=== PATIENT | female | born 1955 | race African-American/Black ===

== ENCOUNTER 2016-10-21 19:39 | Emergency (ER) | payer MEDICARE, MEDICAID ==
[~2016-10-21] VITALS: Ht 170.2 cm; Wt 120.0 kg
[~2016-10-21 19:39] MED LIST: AMIT-188 GT; AMLO10TA4 PO; ASPI-1079 PO; CLOP75TA2 PO; LOSA100T11 PO; METO50TA5 PO
[2016-10-21] MEDS ORDERED: KETOROLAC 60MG/2ML VIAL IM ONE (23:45)
[2016-10-22 00:32] VITALS: BP 160/74
== END 2016-10-22 01:22 | disposition home or self-care (01) ==
LOC: ER 19:40
DX: S93.402A Sprain of unspecified ligament of left ankle, initial encounter (principal); E78.00 Pure hypercholesterolemia, unspecified; E11.9 Type 2 diabetes mellitus without complications; I10 Essential (primary) hypertension; Z88.0 Allergy status to penicillin; Z79.82 Long term (current) use of aspirin; W01.0XXA Fall on same level from slipping, tripping and stumbling without subsequent striking against object, initial encounter; Y92.512 Supermarket, store or market as the place of occurrence of the external cause
CPT/HCPCS: 73610; 73630; 96372; 99284; J1885

== ENCOUNTER 2017-05-15 20:30 | Emergency (ER) | payer MEDICARE, MEDICAID ==
[~2017-05-15] VITALS: Ht 170.2 cm; Wt 119.0 kg
[~2017-05-15 20:30] MED LIST changes: +CLOP75TA16 PO; -CLOP75TA2 PO; -LOSA100T11 PO; +LOSA100T3 PO
[2017-05-15 23:15] VITALS: BP 140/89
== END 2017-05-16 00:02 | disposition home or self-care (01) ==
LOC: ER 23:59
DX: S82.832A Other fracture of upper and lower end of left fibula, initial encounter for closed fracture (principal); S93.402A Sprain of unspecified ligament of left ankle, initial encounter; F17.200 Nicotine dependence, unspecified, uncomplicated; F12.10 Cannabis abuse, uncomplicated; Z88.0 Allergy status to penicillin; X58.XXXA Exposure to other specified factors, initial encounter; Y93.01 Activity, walking, marching and hiking; Y92.89 Other specified places as the place of occurrence of the external cause; Y99.8 Other external cause status
CPT/HCPCS: 29515; 73610; 99284

== ENCOUNTER 2017-05-16 20:43 | Emergency (ER) | payer MEDICARE, MEDICAID ==
[~2017-05-16] VITALS: Ht 165.1 cm; Wt 120.0 kg
[2017-05-16 21:19] VITALS: BP 178/108
== END 2017-05-17 01:10 | disposition home or self-care (01) ==
LOC: ER 20:52
DX: S93.402A Sprain of unspecified ligament of left ankle, initial encounter (principal); X58.XXXA Exposure to other specified factors, initial encounter; Y93.89 Activity, other specified; Y92.89 Other specified places as the place of occurrence of the external cause; Y99.8 Other external cause status
CPT/HCPCS: 29515; 99283

== ENCOUNTER 2017-05-27 00:52 | Emergency (ER) | payer MEDICARE, MEDICAID ==
[~2017-05-27] VITALS: Ht 170.2 cm; Wt 118.0 kg
[2017-05-27] MEDS ORDERED: CLONIDINE 0.2MG TABLET PO ONE (02:30)
[2017-05-27 02:36] LABS: EOSINOPHILS % 2.6 % (0.0-5.0); HEMATOCRIT. 44.5 % (36.0-48.0); MEAN CORPUSCULAR HEMOGLOBIN 31.2 pg (28.0-32.0); MEAN CORPUSCULAR VOLUME 92.7 fL (81.0-99.0); MEAN PLATELET VOLUME 8.5 fl (7.4-10.4); MONOCYTES % 10.4 % (2.0-8.0); PLATELET 209 x1000/uL (130-400); RED CELL DISTRIBUTION WIDTH 15.6 % (11.6-14.6)
[2017-05-27 02:41] LABS: CHLORIDE 107 mEq/L (98-107)
[2017-05-27 02:46] LABS: CARBON DIOXIDE 28 mEq/L (21-32)
[2017-05-27 03:24] VITALS: BP 175/92
== END 2017-05-27 04:05 | disposition home or self-care (01) ==
LOC: ER 00:52
DX: I10 Essential (primary) hypertension (principal); R51 Headache; F17.210 Nicotine dependence, cigarettes, uncomplicated; Z88.0 Allergy status to penicillin; Z79.82 Long term (current) use of aspirin; Z71.6 Tobacco abuse counseling
CPT/HCPCS: 36415; 80048; 85025; 93005; 99285

== ENCOUNTER 2017-06-23 19:38 | Emergency (ER) | payer MEDICARE, MEDICAID ==
[~2017-06-23] VITALS: Ht 170.2 cm; Wt 118.0 kg
[~2017-06-23 19:38] MED LIST changes: +METO-539 PO; -METO50TA5 PO
[2017-06-23] MEDS ORDERED: IBUPROFEN 400MG TABLET PO ONE (22:00)
[2017-06-23 23:55] VITALS: BP 158/76
== END 2017-06-24 00:46 | disposition home or self-care (01) ==
LOC: ER 19:38
DX: M85.871 Other specified disorders of bone density and structure, right ankle and foot (principal); M85.872 Other specified disorders of bone density and structure, left ankle and foot; M77.32 Calcaneal spur, left foot; F41.9 Anxiety disorder, unspecified; E11.9 Type 2 diabetes mellitus without complications; I10 Essential (primary) hypertension; E66.9 Obesity, unspecified; F17.210 Nicotine dependence, cigarettes, uncomplicated; Z68.41 Body mass index [BMI] 40.0-44.9, adult; Z88.0 Allergy status to penicillin; Z79.82 Long term (current) use of aspirin
CPT/HCPCS: 73610; 73630; 99284

== ENCOUNTER 2017-10-04 23:55 | Emergency (ER) | payer MEDICARE, MEDICAID ==
[~2017-10-04] VITALS: Ht 170.2 cm; Wt 118.0 kg
[~2017-10-04 23:55] MED LIST changes: +ALBI30PE SUBCUT; +ALBU6.7H INH; -AMIT-188 GT; +AMIT-188 PO; +CLON0.1T PO; +GUAI-858 PO; +HYDR-4005 PO; +NICO-645 TD; +NITR0.4T49 SL; +TRAM50TA3 PO
[2017-10-05 03:08] VITALS: BP 159/77
== END 2017-10-05 03:09 | disposition home or self-care (01) ==
LOC: ER 23:55
DX: S40.012A Contusion of left shoulder, initial encounter (principal); S00.11XA Contusion of right eyelid and periocular area, initial encounter; I10 Essential (primary) hypertension; F17.200 Nicotine dependence, unspecified, uncomplicated; W01.0XXA Fall on same level from slipping, tripping and stumbling without subsequent striking against object, initial encounter; Y93.89 Activity, other specified; Y99.8 Other external cause status; Y92.89 Other specified places as the place of occurrence of the external cause; Z79.82 Long term (current) use of aspirin; Z88.0 Allergy status to penicillin
CPT/HCPCS: 99281

== ENCOUNTER 2017-10-28 14:10 | Emergency (ER) | payer MEDICARE, MEDICAID ==
[~2017-10-28] VITALS: Ht 165.1 cm; Wt 110.0 kg
[2017-10-28 16:39] LABS: HEMATOCRIT. 48.9 % (36.0-48.0); HEMOGLOBIN. 16.7 g/dL (12.0-16.0); MEAN CORPUSCULAR HEMOGLOBIN 31.3 pg (28.0-32.0); MEAN CORPUSCULAR VOLUME 91.7 fL (81.0-99.0); MEAN PLATELET VOLUME 8.6 fl (7.4-10.4); PLATELET 201 x1000/uL (130-400); RED BLOOD CELL COUNT 5.33 mill/uL (4.2-5.4); RED CELL DISTRIBUTION WIDTH 15.9 % (11.6-14.6)
[2017-10-28 16:44] LABS: CHLORIDE 105 mEq/L (98-107)
[2017-10-28 16:46] LABS: PARTIAL THROMBOPLASTIN TIME 22.9 sec (23.4-31.0); PROTHROMBIN TIME 10.6 sec (9.4-11.6)
[2017-10-28 17:45] LABS: PLATELET ESTIMATE NORMAL
[2017-10-28 21:43] VITALS: BP 156/72
== END 2017-10-28 21:45 | disposition home or self-care (01) ==
LOC: ER 16:56
DX: K02.9 Dental caries, unspecified (principal); I10 Essential (primary) hypertension; R94.31 Abnormal electrocardiogram [ECG] [EKG]; Z88.0 Allergy status to penicillin
CPT/HCPCS: 36415; 71045; 80053; 83690; 84484; 85025; 85610; 85730; 93005; 99285

== ENCOUNTER 2018-01-10 14:40 | Emergency (ER) | payer MEDICARE, MEDICAID ==
[~2018-01-10] VITALS: Ht 167.6 cm; Wt 120.0 kg
[2018-01-10] MEDS ORDERED: CYCLOBENZAPRINE 10MG TABLET PO ONE (15:30)
[2018-01-10] MEDS ORDERED: ACETAMINOPHEN 325MG TABLET PO ONE (15:30)
[2018-01-10 15:46] VITALS: BP 168/88
== END 2018-01-10 15:48 | disposition home or self-care (01) ==
LOC: ER 14:40
DX: M62.830 Muscle spasm of back (principal); I10 Essential (primary) hypertension; Z88.0 Allergy status to penicillin; Z79.01 Long term (current) use of anticoagulants
CPT/HCPCS: 99283

== ENCOUNTER 2018-01-31 16:27 | Emergency (ER) | payer MEDICARE, MEDICAID ==
[~2018-01-31] VITALS: Ht 170.2 cm; Wt 118.0 kg
[2018-01-31 17:04] VITALS: BP 190/90
== END 2018-01-31 19:30 | disposition left against medical advice (07) ==
LOC: ER 16:27
DX: H92.02 Otalgia, left ear (principal)
CPT/HCPCS: 99281

== ENCOUNTER 2018-02-02 16:36 | Emergency (ER) | payer MEDICARE, MEDICAID ==
[~2018-02-02] VITALS: Ht 162.6 cm; Wt 80.0 kg
[2018-02-02 16:56] VITALS: BP 162/72
== END 2018-02-02 17:30 | disposition home or self-care (01) ==
LOC: ER 16:36
DX: H92.02 Otalgia, left ear (principal); I10 Essential (primary) hypertension; F17.200 Nicotine dependence, unspecified, uncomplicated; Z88.0 Allergy status to penicillin; Z79.82 Long term (current) use of aspirin; Z79.899 Other long term (current) drug therapy
CPT/HCPCS: 99281

== ENCOUNTER 2018-07-24 20:19 | Emergency (ER) | payer MEDICARE, MEDICAID ==
[~2018-07-24] VITALS: Ht 170.2 cm; Wt 118.0 kg
[~2018-07-24 20:19] MED LIST changes: -ALBI30PE SUBCUT; +ALBI30PE3 SUBCUT
[2018-07-24 21:53] VITALS: BP 131/73
[2018-07-24] MEDS ORDERED: FLUORESCEIN SODIUM 1MG/STRIP BOTHEYE ONE (22:30)
[2018-07-24] MEDS ORDERED: POLYVINYL ALCOHOL OPHTH DROPS 15ML BOTHEYE SCH (22:30)
[2018-07-24] MEDS ORDERED: TETRACAINE 0.5% OPHTH DROPS 4ML BOTHEYE ONE (22:45)
== END 2018-07-24 23:46 | disposition home or self-care (01) ==
LOC: ER 20:19
DX: H10.9 Unspecified conjunctivitis (principal); I11.9 Hypertensive heart disease without heart failure; F17.200 Nicotine dependence, unspecified, uncomplicated; Z88.0 Allergy status to penicillin
CPT/HCPCS: 99283

== ENCOUNTER 2018-11-14 05:27 | Inpatient (IN) | payer MEDICARE, MEDICAID ==
[~2018-11-14] VITALS: Ht 170 cm; Wt 117.9 kg
[2018-11-14 06:37] LABS: BASOPHILS % 1.2 % (0.0-2.0); EOSINOPHILS % 0.4 % (0.0-5.0); HEMATOCRIT. 45.5 % (36.0-48.0); HEMOGLOBIN. 15.3 g/dL (12.0-16.0); LYMPHOCYTES % 19.4 % (20.0-50.0); MEAN CORPUSCULAR HEMOGLOBIN 30.9 pg (28.0-32.0); MEAN CORPUSCULAR VOLUME 91.8 fL (81.0-99.0); MEAN PLATELET VOLUME 7.8 fl (7.4-10.4); MONOCYTES % 9.7 % (2.0-8.0); NEUTROPHILS % 69.3 % (40.0-76.0); PLATELET 228 x1000/uL (130-400); RED BLOOD CELL COUNT 4.96 mill/uL (4.2-5.4); RED CELL DISTRIBUTION WIDTH 15.2 % (11.6-14.6)
[2018-11-14 06:42] LABS: CHLORIDE 109 mEq/L (98-107)
[2018-11-14 06:46] LABS: PARTIAL THROMBOPLASTIN TIME 30.7 sec (23.4-31.0); PROTHROMBIN TIME 10.1 sec (9.6-11.0)
[2018-11-14] MEDS ORDERED: ENALAPRIL 2.5MG/2ML VIAL 2ML IV ONE (07:00)
[2018-11-14] MEDS ORDERED: METHYLPREDNISOLONE SOD SUCC 125 MG/2 ML VIAL IV STA (07:10)
[2018-11-14] MEDS ORDERED: MAGNESIUM 2 G PREMIX 50 ML IV STA (07:10)
[2018-11-14] MEDS ORDERED: IPRATROPIUM BROMIDE (0.02%) 0.5MG/2.5ML NEB HHN STA (07:10)
[2018-11-14] MEDS ORDERED: ALBUTEROL (0.083%) 2.5MG/3ML NEB HHN STA (07:10)
[2018-11-14] MEDS ORDERED: ASPIRIN 81MG TABLET PO ONE (07:30)
[2018-11-14] MEDS ORDERED: ACETAMINOPHEN 325MG TABLET PO PRN (09:30)
[2018-11-14] MEDS ORDERED: ENOXAPARIN 40MG/0.4ML SYR SUBCUT SCH (09:30)
[2018-11-14] MEDS ORDERED: TRAMADOL 50MG TABLET PO PRN (09:30)
[2018-11-14] MEDS ORDERED: GUAIFENESIN 200MG/10ML SUGAR FREE UDC PO PRN (09:30)
[2018-11-14] MEDS ORDERED: LORAZEPAM 0.5MG TABLET PO PRN (09:30)
[2018-11-14] MEDS ORDERED: ONDANSETRON HCL 4MG/2ML INJ IV PRN (09:30)
[2018-11-14] MEDS ORDERED: MORPHINE SULFATE 4 MG/ML CPJ (NOT FOR IM USE) IV PRN (09:30)
[2018-11-14] MEDS ORDERED: DOCUSATE SODIUM 100MG CAPSULE PO PRN (09:30)
[2018-11-14] MEDS ORDERED: MAGNESIUM/ALUMINUM HYDROXIDE/SIMETHICONE 30ML UDC PO PRN (09:30)
[2018-11-14] MEDS ORDERED: ZOLPIDEM TARTRATE 5MG TABLET PO PRN (09:30)
[2018-11-14] MEDS ORDERED: NITROGLYCERIN 0.4MG TABLET SL SL PRN (09:30)
[2018-11-14] MEDS ORDERED: IPRATROPIUM/ALBUTEROL 0.5-3(2.5)MG/3ML NEB INH PRN (09:30)
[2018-11-14 10:00] VITALS: BP 156/52
[2018-11-14] MEDS: CLOPIDOGREL 75MG TABLET PO SCH (11:55)
[2018-11-14] MEDS: AMLODIPINE 10MG TABLET PO SCH (11:56)
[2018-11-14] MEDS: LOSARTAN POTASSIUM 100 MG TABLET PO SCH (11:56)
[2018-11-14] MEDS: FAMOTIDINE 20MG TABLET PO SCH ×2 (11:56→21:00)
[2018-11-14] MEDS: ASPIRIN 81MG EC TABLET PO SCH (11:56)
[2018-11-14] MEDS: ENOXAPARIN 30MG/0.3ML SYR SUBCUT SCH ×2 (11:57→21:00)
[2018-11-14] MEDS: GUAIFENESIN 600MG ER TABLET PO SCH ×2 (11:57→21:06)
[2018-11-14 12:00] VITALS: BP_SYST 140; BP_SYST 159; BP_DIAS 48; BP_DIAS 87
[2018-11-14] MEDS: METHYLPREDNISOLONE SOD SUCC 125 MG/2 ML VIAL IV SCH ×2 (14:11→21:07)
[2018-11-14] MEDS: LEVOFLOXACIN 500MG PREMIX 100 ML IV SCH (14:12)
[2018-11-14] MEDS: METOPROLOL TARTRATE 25MG TABLET PO SCH ×2 (14:15→21:06)
[2018-11-14 16:00] VITALS: BP 196/78
[2018-11-14 16:00] LABS: CREATINE KINASE MB FRACTION 4.9 ng/mL (0.5-3.6)
[2018-11-14 18:57] VITALS: BP 135/78
[2018-11-14] MEDS: CLONIDINE 0.1MG TABLET PO PRN (19:26)
[2018-11-14 19:29] VITALS: BP 233/91
[2018-11-14] MEDS ORDERED: AMIT75TA2 MT (19:52)
[2018-11-14 20:00] VITALS: BP 154/70
[2018-11-14] MEDS: IPRATROPIUM/ALBUTEROL 0.5-3(2.5)MG/3ML NEB HHN SCH ×2 (20:07→20:39)
[2018-11-14] MEDS: AMITRIPTYLINE 25MG TABLET PO SCH (21:05)
[2018-11-14] MEDS: ACETAMINOPHEN WITH CODEINE 300/30MG TABLET PO PRN (21:07)
[2018-11-14 23:41] LABS: CREATINE KINASE MB FRACTION 7.1 ng/mL (0.5-3.6)
[2018-11-15] VITALS: BP 145/72
[2018-11-15] MEDS: FAMOTIDINE 20MG TABLET PO SCH ×3 (00:48→21:00)
[2018-11-15 01:15] LABS: PHENCYCLIDINE URINE SCREEN NEGATIVE (NEGATIVE)
[2018-11-15 01:16] LABS: *AMPHETAMINES SCREEN URINE NEGATIVE (NEGATIVE); *BARBITURATES SCREEN URINE NEGATIVE (NEGATIVE); *BENZODIAZEPINES SCREEN URINE NEGATIVE (NEGATIVE); *COCAINE SCREEN URINE NEGATIVE (NEGATIVE); CANNABINOID URINE SCREEN NEGATIVE (NEGATIVE); METHADONE URINE SCREEN NEGATIVE (NEGATIVE); OPIATES URINE SCREEN PRESUMTIVE POSITIVE (NEGATIVE)
[2018-11-15] MEDS: IPRATROPIUM/ALBUTEROL 0.5-3(2.5)MG/3ML NEB HHN SCH ×5 (01:47→20:04)
[2018-11-15] MEDS: METHYLPREDNISOLONE SOD SUCC 125 MG/2 ML VIAL IV SCH ×3 (06:07→21:02)
[2018-11-15 08:00] VITALS: BP 180/71
[2018-11-15] MEDS: ENOXAPARIN 30MG/0.3ML SYR SUBCUT SCH ×3 (09:00→21:00)
[2018-11-15] MEDS: ASPIRIN 81MG EC TABLET PO SCH (09:06)
[2018-11-15] MEDS: CLOPIDOGREL 75MG TABLET PO SCH (09:06)
[2018-11-15] MEDS: LOSARTAN POTASSIUM 100 MG TABLET PO SCH (09:06)
[2018-11-15] MEDS: METOPROLOL TARTRATE 25MG TABLET PO SCH ×2 (09:07→21:00)
[2018-11-15] MEDS: GUAIFENESIN 600MG ER TABLET PO SCH ×2 (09:07→21:00)
[2018-11-15] MEDS: AMLODIPINE 10MG TABLET PO SCH (09:08)
[2018-11-15 12:00] VITALS: BP 156/58
[2018-11-15] MEDS: LEVOFLOXACIN 500MG PREMIX 100 ML IV SCH (12:03)
[2018-11-15 14:15] VITALS: BP 165/68
[2018-11-15 18:00] VITALS: BP 163/58
[2018-11-15] MEDS: CLONIDINE 0.1MG TABLET PO PRN (18:29)
[2018-11-15] MEDS ORDERED: DEXTROSE 50% WATER 50ML SYRINGE IV PRN (19:00)
[2018-11-15 20:00] VITALS: BP 173/69
[2018-11-15] MEDS: BLOOD SUGAR DIAGNOSTIC STRIP TEST SCH (20:26)
[2018-11-15] MEDS: NICOTINE 14MG PATCH TD SCH (21:00)
[2018-11-15] MEDS: AMITRIPTYLINE 25MG TABLET PO SCH (21:00)
[2018-11-15] MEDS ORDERED: INSULIN LISPRO 100 UNITS/ML SUBCUT SCH (21:00)
[2018-11-15] MEDS: ACETAMINOPHEN WITH CODEINE 300/30MG TABLET PO PRN (21:01)
[2018-11-15] MEDS: INSULIN LISPRO 100 UNITS/ML SUBCUT SCH (21:01)
[2018-11-16] VITALS: BP 125/62
[2018-11-16] MEDS: METHYLPREDNISOLONE SOD SUCC 125 MG/2 ML VIAL IV SCH ×3 (05:57→21:27)
[2018-11-16] MEDS: IPRATROPIUM/ALBUTEROL 0.5-3(2.5)MG/3ML NEB HHN SCH ×3 (08:08→21:31)
[2018-11-16] MEDS: BLOOD SUGAR DIAGNOSTIC STRIP TEST SCH ×4 (08:23→21:05)
[2018-11-16] MEDS: ENOXAPARIN 30MG/0.3ML SYR SUBCUT SCH ×2 (09:00→21:02)
[2018-11-16 12:00] VITALS: BP 155/66
[2018-11-16] MEDS: LEVOFLOXACIN 500MG PREMIX 100 ML IV SCH (12:23)
[2018-11-16] MEDS: GUAIFENESIN 600MG ER TABLET PO SCH ×2 (12:24→21:02)
[2018-11-16] MEDS: ASPIRIN 81MG EC TABLET PO SCH (12:24)
[2018-11-16] MEDS: CLOPIDOGREL 75MG TABLET PO SCH (12:24)
[2018-11-16] MEDS: AMLODIPINE 10MG TABLET PO SCH (12:24)
[2018-11-16] MEDS: METOPROLOL TARTRATE 25MG TABLET PO SCH ×2 (12:25→21:03)
[2018-11-16] MEDS: FAMOTIDINE 20MG TABLET PO SCH ×2 (12:25→21:03)
[2018-11-16] MEDS: LOSARTAN POTASSIUM 100 MG TABLET PO SCH (12:25)
[2018-11-16] MEDS: INSULIN LISPRO 100 UNITS/ML SUBCUT SCH ×4 (12:30→21:05)
[2018-11-16 16:00] VITALS: BP 124/74
[2018-11-16 20:00] VITALS: BP 116/35
[2018-11-16 21:00] VITALS: BP 116/55
[2018-11-16] MEDS: NICOTINE 14MG PATCH TD SCH (21:02)
[2018-11-16] MEDS: AMITRIPTYLINE 25MG TABLET PO SCH (21:03)
[2018-11-17] VITALS: BP 122/62
[2018-11-17] MEDS: IPRATROPIUM/ALBUTEROL 0.5-3(2.5)MG/3ML NEB HHN SCH ×2 (02:41→09:09)
[2018-11-17] MEDS: METHYLPREDNISOLONE SOD SUCC 125 MG/2 ML VIAL IV SCH (05:57)
[2018-11-17] MEDS: BLOOD SUGAR DIAGNOSTIC STRIP TEST SCH (05:57)
[2018-11-17] MEDS: ENOXAPARIN 30MG/0.3ML SYR SUBCUT SCH (09:00)
[2018-11-17 10:28] VITALS: BP 143/68
[2018-11-17] MEDS: CLOPIDOGREL 75MG TABLET PO SCH (10:32)
[2018-11-17] MEDS: GUAIFENESIN 600MG ER TABLET PO SCH (10:32)
[2018-11-17] MEDS: ASPIRIN 81MG EC TABLET PO SCH (10:32)
[2018-11-17] MEDS: AMLODIPINE 10MG TABLET PO SCH (10:32)
[2018-11-17] MEDS: FAMOTIDINE 20MG TABLET PO SCH (10:33)
[2018-11-17] MEDS: LOSARTAN POTASSIUM 100 MG TABLET PO SCH (10:33)
[2018-11-17] MEDS: METOPROLOL TARTRATE 25MG TABLET PO SCH (10:33)
[2018-11-17] MEDS: INSULIN LISPRO 100 UNITS/ML SUBCUT SCH (10:36)
[2018-11-17] MEDS ORDERED: LEVOFLOXACIN 500MG TABLET PO SCH (11:00)
[2018-11-17 11:38] VITALS: BP 143/68
== END 2018-11-17 12:17 | disposition home or self-care (01) | DRG 189 ==
LOC: ER 05:27 → 7WST 07:38 → ENRESERV 08:44
PROVIDERS: ADMIT Internal Medicine; ATTEND Internal Medicine
DX: J96.00 Acute respiratory failure, unspecified whether with hypoxia or hypercapnia (principal); J44.1 Chronic obstructive pulmonary disease with (acute) exacerbation; I11.0 Hypertensive heart disease with heart failure; J20.9 Acute bronchitis, unspecified; I50.9 Heart failure, unspecified; E11.65 Type 2 diabetes mellitus with hyperglycemia; E66.01 Morbid (severe) obesity due to excess calories; F17.210 Nicotine dependence, cigarettes, uncomplicated; Z79.4 Long term (current) use of insulin; Z91.11 Patient's noncompliance with dietary regimen; Z91.14 Patient's other noncompliance with medication regimen; Z88.0 Allergy status to penicillin; Z79.82 Long term (current) use of aspirin; Z79.899 Other long term (current) drug therapy; Z71.3 Dietary counseling and surveillance
CPT/HCPCS: 36415; 71045; 80061; 80305; 82550; 82553; 82962; 83036; 83880; 84484; 93005; 93970; 94640; 94644; 97161; 99291; J1650; J1815; J1956; J2930; J3475; J3490; J7050; J7611; J7620

== ENCOUNTER 2019-03-04 21:25 | Emergency (ER) | payer MEDICARE, MEDICAID ==
[~2019-03-04] VITALS: Ht 170.2 cm; Wt 120.0 kg
[~2019-03-04 21:25] MED LIST changes: +AMIT75TA2 MT; -CLOP75TA16 PO; +CLOP75TA4 PO
[2019-03-04 22:31] VITALS: BP 199/78
[2019-03-05] MEDS ORDERED: BACITRACIN 15GM TUBE TOP ONE (01:00)
== END 2019-03-05 01:22 | disposition home or self-care (01) ==
LOC: ER 21:25
DX: T22.112A Burn of first degree of left forearm, initial encounter (principal); T21.11XA Burn of first degree of chest wall, initial encounter; F41.9 Anxiety disorder, unspecified; E11.9 Type 2 diabetes mellitus without complications; I10 Essential (primary) hypertension; F17.200 Nicotine dependence, unspecified, uncomplicated; X10.2XXA Contact with fats and cooking oils, initial encounter; Y93.G3 Activity, cooking and baking; Y92.9 Unspecified place or not applicable; Z88.0 Allergy status to penicillin; Z79.82 Long term (current) use of aspirin
CPT/HCPCS: 99283

== ENCOUNTER 2019-03-22 18:41 | Emergency (ER) | payer MEDICARE, MEDICAID ==
[~2019-03-22] VITALS: Ht 170.2 cm; Wt 121.0 kg
[2019-03-22 22:47] VITALS: BP 161/83
== END 2019-03-22 22:49 | disposition home or self-care (01) ==
LOC: ER 18:41
DX: L25.9 Unspecified contact dermatitis, unspecified cause (principal); D22.9 Melanocytic nevi, unspecified; F41.9 Anxiety disorder, unspecified; E11.9 Type 2 diabetes mellitus without complications; I10 Essential (primary) hypertension; Z79.82 Long term (current) use of aspirin; Z79.899 Other long term (current) drug therapy; Z88.0 Allergy status to penicillin
CPT/HCPCS: 99282

== ENCOUNTER 2019-05-23 15:25 | Emergency (ER) | payer MEDICARE, MEDICAID ==
[~2019-05-23] VITALS: Ht 170.2 cm; Wt 118.0 kg
[2019-05-23 18:20] VITALS: BP 156/69
== END 2019-05-23 18:25 | disposition home or self-care (01) ==
LOC: ER 15:25
DX: H10.9 Unspecified conjunctivitis (principal); F41.9 Anxiety disorder, unspecified; I10 Essential (primary) hypertension; M19.90 Unspecified osteoarthritis, unspecified site; F17.200 Nicotine dependence, unspecified, uncomplicated; Z88.0 Allergy status to penicillin
CPT/HCPCS: 99282

== ENCOUNTER 2020-11-26 13:35 | Emergency (ER) | payer MEDICARE, MEDICAID ==
[~2020-11-26] VITALS: Ht 162.6 cm; Wt 127.0 kg
[~2020-11-26 13:35] MED LIST changes: -ALBU6.7H INH; +ALBU6.7H11 INH; -CLON0.1T PO; +CLOP-31 PO; -CLOP75TA4 PO; +CYCL10TA7 MT; -GUAI-858 PO; -HYDR-4005 PO; -NICO-645 TD; -NITR0.4T49 SL; +TLXL5 MT; -TRAM50TA3 PO
[2020-11-26] MEDS ORDERED: IBUPROFEN 600MG TABLET PO ONE (14:15)
[2020-11-26] MEDS ORDERED: NAPR-1176 MT (15:40)
[2020-11-26 16:15] VITALS: BP 135/89
== END 2020-11-26 16:15 | disposition home or self-care (01) ==
LOC: ER 13:35
DX: S29.012A Strain of muscle and tendon of back wall of thorax, initial encounter (principal); S46.811A Strain of other muscles, fascia and tendons at shoulder and upper arm level, right arm, initial encounter; F41.9 Anxiety disorder, unspecified; E11.9 Type 2 diabetes mellitus without complications; I10 Essential (primary) hypertension; V43.62XA Car passenger injured in collision with other type car in traffic accident, initial encounter; Y93.89 Activity, other specified; Y92.410 Unspecified street and highway as the place of occurrence of the external cause; Z88.0 Allergy status to penicillin; Z79.82 Long term (current) use of aspirin; Z98.890 Other specified postprocedural states
CPT/HCPCS: 72050; 99283

== ENCOUNTER 2021-08-16 04:49 | Inpatient (IN) | payer MEDICARE, MEDICAID ==
[~2021-08-16] VITALS: Ht 170.2 cm; Wt 106.6 kg
[~2021-08-16 04:49] MED LIST changes: -ALBU6.7H11 INH; +ALBU6.7H15 INH; +NAPR-1176 MT
[2021-08-16] MEDS ORDERED: IPRATROPIUM BROMIDE (0.02%) 0.5MG/2.5ML NEB HHN STA (05:29)
[2021-08-16] MEDS ORDERED: PREDNISONE 20MG TABLET PO STA (05:29)
[2021-08-16] MEDS ORDERED: ALBUTEROL (0.083%) 2.5MG/3ML NEB HHN STA (05:29)
[2021-08-16 06:26] LABS: CHLORIDE 110 mEq/L (98-107)
[2021-08-16] MEDS ORDERED: AMLODIPINE 5MG TABLET PO ONE (07:45)
[2021-08-16] MEDS ORDERED: ENALAPRIL 2.5MG/2ML VIAL 2ML IV ONE (07:45)
[2021-08-16] MEDS ORDERED: ENALAPRIL 1.25MG/ML VIAL 1ML IV ONE (08:00)
[2021-08-16 08:41] LABS: BASOPHILS % 0.7 % (0.0-2.0); EOSINOPHILS % 0.4 % (0.0-5.0); HEMATOCRIT. 46.1 % (36.0-48.0); HEMOGLOBIN. 15.7 g/dL (12.0-16.0); LYMPHOCYTES % 16.9 % (20.0-50.0); MEAN CORPUSCULAR HEMOGLOBIN 30.4 pg (28.0-32.0); MEAN CORPUSCULAR VOLUME 89.4 fL (81.0-99.0); MEAN PLATELET VOLUME 8.7 fl (7.4-10.4); MONOCYTES % 5.1 % (2.0-8.0); NEUTROPHILS % 76.9 % (40.0-76.0); PLATELET 228 x1000/uL (130-400); RED BLOOD CELL COUNT 5.16 mill/uL (4.2-5.4); RED CELL DISTRIBUTION WIDTH 15.5 % (11.6-14.6)
[2021-08-16] MEDS ORDERED: NITROGLYCERIN OINT 1GM/INCH UDPKT TD ONE (09:30)
[2021-08-16] MEDS ORDERED: ASPIRIN 325MG EC TABLET PO ONE (09:30)
[2021-08-16] MEDS ORDERED: METOPROLOL TARTRATE 5MG/5ML VIAL IV ONE (10:15)
[2021-08-16] MEDS ORDERED: DEXTROSE 50% WATER 50ML SYRINGE IV PRN (10:45)
[2021-08-16] MEDS ORDERED: IPRATROPIUM/ALBUTEROL 0.5-3(2.5)MG/3ML NEB NEB PRN (10:45)
[2021-08-16] MEDS ORDERED: NITROGLYCERIN 0.4MG TABLET SL SL PRN (10:45)
[2021-08-16] MEDS ORDERED: DOCUSATE SODIUM 100MG CAPSULE PO PRN (10:45)
[2021-08-16] MEDS ORDERED: ONDANSETRON HCL 4MG/2ML INJ IV PRN (10:45)
[2021-08-16] MEDS ORDERED: ZOLPIDEM TARTRATE 5MG TABLET PO PRN (10:45)
[2021-08-16] MEDS ORDERED: ACETAMINOPHEN 325MG TABLET PO PRN ×2 (10:45)
[2021-08-16] MEDS ORDERED: MAGNESIUM/ALUMINUM HYDROXIDE/SIMETHICONE 30ML UDC PO PRN (10:45)
[2021-08-16] MEDS ORDERED: CLONIDINE 0.1MG TABLET PO PRN (10:45)
[2021-08-16] MEDS ORDERED: TRAMADOL 50MG TABLET PO PRN (10:45)
[2021-08-16] MEDS ORDERED: GUAIFENESIN 200MG/10ML SUGAR FREE UDC PO PRN (10:45)
[2021-08-16] MEDS: ENOXAPARIN 120MG/0.8ML SYR SUBCUT SCH ×2 (12:54→23:28)
[2021-08-16] MEDS: AMLODIPINE 10MG TABLET PO SCH (12:54)
[2021-08-16] MEDS: LOSARTAN POTASSIUM 100 MG TABLET PO SCH (12:54)
[2021-08-16] MEDS ORDERED: HYDRALAZINE 20MG/ML VIAL IV PRN (13:45)
[2021-08-16 13:57] LABS: CLARITY URINE CLEAR (CLEAR); COLOR URINE YELLOW (YELLOW); KETONES URINE NEGATIVE (NEGATIVE); LEUKOCYTE ESTERASE URINE NEGATIVE (NEGATIVE); NITRITE URINE NEGATIVE (NEGATIVE); OCCULT BLOOD URINE NEGATIVE (NEGATIVE); PROTEIN URINE 1+ (NEGATIVE); UROBILINOGEN URINE 0.2 E.U./dL (0.2-1.0)
[2021-08-16 14:36] LABS: *BARBITURATES SCREEN URINE NEGATIVE (NEGATIVE)
[2021-08-16 14:37] LABS: *AMPHETAMINES SCREEN URINE NEGATIVE (NEGATIVE); *BENZODIAZEPINES SCREEN URINE NEGATIVE (NEGATIVE); *COCAINE SCREEN URINE NEGATIVE (NEGATIVE)
[2021-08-16 14:40] LABS: CANNABINOID URINE SCREEN NEGATIVE (NEGATIVE)
[2021-08-16 14:52] LABS: METHADONE URINE SCREEN NEGATIVE (NEGATIVE)
[2021-08-16 14:54] LABS: PHENCYCLIDINE URINE SCREEN NEGATIVE (NEGATIVE)
[2021-08-16 14:55] LABS: OPIATES URINE SCREEN PRESUMTIVE POSITIVE (NEGATIVE)
[2021-08-16] MEDS: BLOOD SUGAR DIAGNOSTIC STRIP TEST SCH ×3 (14:55→21:00)
[2021-08-16] MEDS: INSULIN LISPRO 100 UNITS/ML SUBCUT SCH ×3 (14:58→21:00)
[2021-08-16] MEDS: ISOSORBIDE DINITRATE 10MG TABLET PO SCH ×2 (15:11→20:35)
[2021-08-16] MEDS: METOPROLOL TARTRATE 50MG TABLET PO SCH (20:35)
[2021-08-16] MEDS: ASCORBIC ACID 500 MG TABLET PO SCH (21:00)
[2021-08-16] MEDS: FAMOTIDINE 20MG TABLET PO SCH (21:00)
[2021-08-16 22:03] VITALS: BP 129/63
[2021-08-16] MEDS: ATORVASTATIN CALCIUM 40MG TABLET PO SCH (23:27)
[2021-08-17] VITALS: BP 166/64
[2021-08-17] MEDS ORDERED: QUET25TA36 PO (00:16)
[2021-08-17] MEDS ORDERED: NITR0.4T49 SL (00:18)
[2021-08-17 03:24] LABS: CREATINE KINASE MB FRACTION 4.8 ng/mL (0.5-3.6)
[2021-08-17 04:00] VITALS: BP 163/65
[2021-08-17] MEDS ORDERED: *PATIENT'S OWN MEDICATION STORAGE XX SCH (05:00)
[2021-08-17] MEDS: METOPROLOL TARTRATE 50MG TABLET PO SCH ×2 (05:41→18:47)
[2021-08-17] MEDS: INSULIN LISPRO 100 UNITS/ML SUBCUT SCH ×4 (06:01→20:37)
[2021-08-17] MEDS: BLOOD SUGAR DIAGNOSTIC STRIP TEST SCH ×4 (06:01→20:37)
[2021-08-17 08:00] VITALS: BP 152/72
[2021-08-17] MEDS ORDERED: ZINC SULFATE 220 MG ( 50 ) CAPSULE PO SCH (09:00)
[2021-08-17] MEDS ORDERED: ASPIRIN 81MG TABLET PO SCH (09:00)
[2021-08-17] MEDS ORDERED: CLOPIDOGREL 75MG TABLET PO SCH (09:00)
[2021-08-17] MEDS ORDERED: ASPIRIN 81MG EC TABLET PO SCH (09:00)
[2021-08-17] MEDS ORDERED: CHOLECALCIFEROL (D3) 1000 UNIT TABLET PO SCH (09:00)
[2021-08-17] MEDS: AMLODIPINE 10MG TABLET PO SCH (10:06)
[2021-08-17] MEDS: LOSARTAN POTASSIUM 100 MG TABLET PO SCH (10:07)
[2021-08-17] MEDS: FAMOTIDINE 20MG TABLET PO SCH ×2 (10:08→20:36)
[2021-08-17] MEDS: ASCORBIC ACID 500 MG TABLET PO SCH ×2 (10:08→20:37)
[2021-08-17] MEDS: ISOSORBIDE DINITRATE 10MG TABLET PO SCH ×3 (11:11→18:47)
[2021-08-17 11:33] LABS: BASOPHILS % 0.9 % (0.0-2.0); EOSINOPHILS % 0.5 % (0.0-5.0); HEMATOCRIT. 44.3 % (36.0-48.0); HEMOGLOBIN. 14.4 g/dL (12.0-16.0); MEAN CORPUSCULAR HEMOGLOBIN 29.5 pg (28.0-32.0); MEAN CORPUSCULAR VOLUME 90.9 fL (81.0-99.0); MEAN PLATELET VOLUME 9.5 fl (7.4-10.4); MONOCYTES % 9.4 % (2.0-8.0); NEUTROPHILS % 65.2 % (40.0-76.0); PLATELET 160 x1000/uL (130-400); RED BLOOD CELL COUNT 4.87 mill/uL (4.2-5.4); RED CELL DISTRIBUTION WIDTH 15.8 % (11.6-14.6)
[2021-08-17 11:36] LABS: CHLORIDE 108 mEq/L (98-107)
[2021-08-17 11:43] LABS: PHOSPHORUS 3.4 mg/dL (2.5-4.9)
[2021-08-17 12:00] VITALS: BP 123/67
[2021-08-17] MEDS: ENOXAPARIN 120MG/0.8ML SYR SUBCUT SCH ×2 (14:01→22:56)
[2021-08-17 16:00] VITALS: BP 139/62
[2021-08-17] MEDS ORDERED: NICOTINE 14MG PATCH TD SCH (20:00)
[2021-08-17] MEDS ORDERED: HALOPERIDOL LACTATE 5MG/ML VIAL IM PRN (20:00)
[2021-08-17] MEDS: ATORVASTATIN CALCIUM 40MG TABLET PO SCH (20:36)
== END 2021-08-18 02:45 | disposition left against medical advice (07) | DRG 280 ==
LOC: ER 04:49 → 8WST 11:22 → ENRESERV 20:44
PROVIDERS: ADMIT Internal Medicine; ATTEND Internal Medicine
DX: I21.4 Non-ST elevation (NSTEMI) myocardial infarction (principal); I50.33 Acute on chronic diastolic (congestive) heart failure; E44.1 Mild protein-calorie malnutrition; I16.1 Hypertensive emergency; J44.1 Chronic obstructive pulmonary disease with (acute) exacerbation; J45.901 Unspecified asthma with (acute) exacerbation; E11.51 Type 2 diabetes mellitus with diabetic peripheral angiopathy without gangrene; E66.01 Morbid (severe) obesity due to excess calories; F17.210 Nicotine dependence, cigarettes, uncomplicated; I11.0 Hypertensive heart disease with heart failure; Z20.822 Contact with and (suspected) exposure to COVID-19; Z53.29 Procedure and treatment not carried out because of patient's decision for other reasons; F99 Mental disorder, not otherwise specified; Z91.14 Patient's other noncompliance with medication regimen; Z88.0 Allergy status to penicillin; Z79.4 Long term (current) use of insulin; Z71.6 Tobacco abuse counseling; Z68.36 Body mass index [BMI] 36.0-36.9, adult
CPT/HCPCS: 36415; 71045; 80053; 80305; 81003; 82550; 82553; 82962; 83036; 83735; 83880; 84100; 84484; 85025; 87426; 93005; 93923; 93970; 94640; 99285; J1650; J3490; J7512

== ENCOUNTER 2021-11-11 15:03 | Emergency (ER) | payer MEDICARE, MEDICAID ==
[~2021-11-11] VITALS: Ht 167.6 cm; Wt 113.0 kg
[~2021-11-11 15:03] MED LIST changes: +NITR0.4T49 SL; +QUET25TA36 PO
[2021-11-11 15:12] VITALS: BP 185/74
[2021-11-11 16:43] LABS: BASOPHILS % 0.6 % (0.0-2.0); EOSINOPHILS % 1.1 % (0.0-5.0); HEMATOCRIT. 48.6 % (36.0-48.0); HEMOGLOBIN. 16.4 g/dL (12.0-16.0); LYMPHOCYTES % 24.2 % (20.0-50.0); MEAN CORPUSCULAR HEMOGLOBIN 30.8 pg (28.0-32.0); MEAN CORPUSCULAR VOLUME 91.4 fL (81.0-99.0); MEAN PLATELET VOLUME 8.3 fl (7.4-10.4); MONOCYTES % 9.1 % (2.0-8.0); PLATELET 213 x1000/uL (130-400); RED BLOOD CELL COUNT 5.32 mill/uL (4.2-5.4); RED CELL DISTRIBUTION WIDTH 16.5 % (11.6-14.6)
[2021-11-11 16:48] LABS: CHLORIDE 110 mEq/L (98-107)
[2021-11-11] MEDS ORDERED: PARO10TA87 MT (18:44)
[2021-11-11] MEDS ORDERED: PARO-66 MT (18:44)
== END 2021-11-11 19:29 | disposition home or self-care (01) ==
LOC: ER 15:03
DX: F41.9 Anxiety disorder, unspecified (principal); R07.89 Other chest pain; F60.0 Paranoid personality disorder; I11.0 Hypertensive heart disease with heart failure; I50.9 Heart failure, unspecified; E78.00 Pure hypercholesterolemia, unspecified; E05.90 Thyrotoxicosis, unspecified without thyrotoxic crisis or storm; Z88.0 Allergy status to penicillin; Z79.82 Long term (current) use of aspirin
CPT/HCPCS: 36415; 71045; 80053; 83880; 85025; 93005; 99285

== ENCOUNTER 2022-04-17 19:03 | Inpatient (IN) | payer MEDICARE, MEDICAID ==
[~2022-04-17] VITALS: Ht 167.6 cm; Wt 99.5 kg
[~2022-04-17 19:03] MED LIST changes: +CYCL10TA21 MT; -CYCL10TA7 MT; +PARO-66 MT; +PARO10TA87 MT
[2022-04-17] MEDS ORDERED: ACETAMINOPHEN 325MG TABLET PO ONE (20:00)
[2022-04-17 21:02] LABS: BASOPHILS % 0.8 % (0.0-2.0); EOSINOPHILS % 0.8 % (0.0-5.0); HEMATOCRIT. 46.3 % (36.0-48.0); HEMOGLOBIN. 15.8 g/dL (12.0-16.0); LYMPHOCYTES % 21.9 % (20.0-50.0); MEAN CORPUSCULAR HEMOGLOBIN 31.4 pg (28.0-32.0); MEAN PLATELET VOLUME 8.3 fl (7.4-10.4); NEUTROPHILS % 65.5 % (40.0-76.0); PLATELET 218 x1000/uL (130-400); RED BLOOD CELL COUNT 5.03 mill/uL (4.2-5.4); RED CELL DISTRIBUTION WIDTH 15.3 % (11.6-14.6)
[2022-04-17 21:27] LABS: CHLORIDE 105 mEq/L (98-107)
[2022-04-17] MEDS ORDERED: ASPIRIN 325MG EC TABLET PO NR (22:00)
[2022-04-17] MEDS ORDERED: ENOXAPARIN 100MG/ML SYR SUBCUT NR (22:09)
[2022-04-18] MEDS ORDERED: ACETAMINOPHEN 325MG TABLET PO NR (05:15)
[2022-04-18] MEDS ORDERED: NITROGLYCERIN 0.4MG TABLET SL SL PRN (09:15)
[2022-04-18] MEDS ORDERED: GUAIFENESIN 200MG/10ML SUGAR FREE UDC PO PRN (09:15)
[2022-04-18] MEDS ORDERED: KETOROLAC 30MG/ML VIAL IV PRN (09:15)
[2022-04-18] MEDS ORDERED: DOCUSATE SODIUM 100MG CAPSULE PO PRN (09:15)
[2022-04-18] MEDS ORDERED: MAGNESIUM/ALUMINUM HYDROXIDE/SIMETHICONE 30ML UDC PO PRN (09:15)
[2022-04-18] MEDS ORDERED: ACETAMINOPHEN 325MG TABLET PO PRN ×2 (09:15)
[2022-04-18] MEDS ORDERED: IPRATROPIUM/ALBUTEROL 0.5-3(2.5)MG/3ML NEB NEB PRN (09:15)
[2022-04-18] MEDS ORDERED: ZOLPIDEM TARTRATE 5MG TABLET PO PRN (09:15)
[2022-04-18] MEDS ORDERED: DEXTROSE 50% WATER 50ML SYRINGE IV PRN (09:15)
[2022-04-18] MEDS ORDERED: ONDANSETRON HCL 4MG/2ML INJ IV PRN (09:15)
[2022-04-18] MEDS: LOSARTAN POTASSIUM 100 MG TABLET PO SCH (09:38)
[2022-04-18] MEDS: AMLODIPINE 10MG TABLET PO SCH (09:38)
[2022-04-18] MEDS: CLOPIDOGREL 75MG TABLET PO SCH (09:39)
[2022-04-18 11:00] VITALS: BP 174/76
[2022-04-18] MEDS ORDERED: NALOXONE HCL 0.4MG/ML VIAL IV PRN (11:30)
[2022-04-18] MEDS: FUROSEMIDE 40MG TABLET PO SCH (11:54)
[2022-04-18] MEDS: CLONIDINE 0.1MG TABLET PO PRN (11:54)
[2022-04-18] MEDS: BLOOD SUGAR DIAGNOSTIC STRIP TEST SCH ×3 (11:59→20:31)
[2022-04-18 12:00] VITALS: BP 174/64
[2022-04-18] MEDS: INSULIN LISPRO 100 UNITS/ML SUBCUT SCH ×3 (12:00→20:31)
[2022-04-18 13:11] LABS: PROTHROMBIN TIME 10.9 sec (9.6-11.0)
[2022-04-18 13:37] LABS: T4 FREE 1.13 ng/dL (0.76-1.46)
[2022-04-18] MEDS: ENOXAPARIN 100MG/ML SYR SUBCUT SCH (15:00)
[2022-04-18 16:00] VITALS: BP 125/51
[2022-04-18 17:50] LABS: CREATINE KINASE 283 IU/L (26-192); CREATINE KINASE MB FRACTION 2.7 ng/mL (0.5-3.6)
[2022-04-18] MEDS: FAMOTIDINE 20MG TABLET PO SCH (20:22)
[2022-04-18] MEDS ORDERED: *PATIENT'S OWN MEDICATION STORAGE XX SCH (23:30)
[2022-04-18] MEDS: TRAMADOL 50MG TABLET PO PRN (23:38)
[2022-04-19] VITALS: BP 153/76
[2022-04-19 00:58] LABS: CREATINE KINASE MB FRACTION 2.8 ng/mL (0.5-3.6)
[2022-04-19 04:00] VITALS: BP 179/70
[2022-04-19] MEDS: CLONIDINE 0.1MG TABLET PO PRN (04:55)
[2022-04-19] MEDS: INSULIN LISPRO 100 UNITS/ML SUBCUT SCH ×4 (06:04→20:37)
[2022-04-19] MEDS: BLOOD SUGAR DIAGNOSTIC STRIP TEST SCH ×4 (06:04→20:36)
[2022-04-19 07:38] LABS: BASOPHILS % 0.5 % (0.0-2.0); EOSINOPHILS % 1.3 % (0.0-5.0); HEMATOCRIT. 44.9 % (36.0-48.0); LYMPHOCYTES % 42.3 % (20.0-50.0); MEAN CORPUSCULAR HEMOGLOBIN 30.8 pg (28.0-32.0); MEAN CORPUSCULAR VOLUME 92.1 fL (81.0-99.0); MONOCYTES % 10.8 % (2.0-8.0); NEUTROPHILS % 45.1 % (40.0-76.0); PLATELET 207 x1000/uL (130-400); RED BLOOD CELL COUNT 4.87 mill/uL (4.2-5.4); RED CELL DISTRIBUTION WIDTH 15.1 % (11.6-14.6)
[2022-04-19 08:29] LABS: CHLORIDE 104 mEq/L (98-107); PHOSPHORUS 4.2 mg/dL (2.5-4.9)
[2022-04-19] MEDS: ASPIRIN 81MG EC TABLET PO SCH (09:48)
[2022-04-19] MEDS: FAMOTIDINE 20MG TABLET PO SCH ×2 (09:48→20:25)
[2022-04-19] MEDS: LOSARTAN POTASSIUM 100 MG TABLET PO SCH (09:48)
[2022-04-19] MEDS: ENOXAPARIN 100MG/ML SYR SUBCUT SCH ×2 (09:48→20:27)
[2022-04-19] MEDS: CLOPIDOGREL 75MG TABLET PO SCH (09:48)
[2022-04-19] MEDS: AMLODIPINE 10MG TABLET PO SCH (09:49)
[2022-04-19] MEDS: FUROSEMIDE 40MG TABLET PO SCH (09:49)
[2022-04-19 16:00] VITALS: BP 170/79
[2022-04-19] MEDS ORDERED: PERP2TAB5 MT (16:19)
[2022-04-19 20:00] VITALS: BP 162/84
[2022-04-19] MEDS: TRAMADOL 50MG TABLET PO PRN (20:26)
[2022-04-19] MEDS ORDERED: REGADENOSON 0.4 MG/5 ML IV NR (20:45)
[2022-04-20] VITALS: BP 150/60
[2022-04-20 04:00] VITALS: BP 176/74
[2022-04-20] MEDS: INSULIN LISPRO 100 UNITS/ML SUBCUT SCH ×2 (05:39→12:10)
[2022-04-20] MEDS: BLOOD SUGAR DIAGNOSTIC STRIP TEST SCH ×2 (05:39→11:21)
[2022-04-20] MEDS: CLONIDINE 0.1MG TABLET PO PRN (05:53)
[2022-04-20 08:00] VITALS: BP 135/52
[2022-04-20] MEDS: ENOXAPARIN 100MG/ML SYR SUBCUT SCH (09:00)
[2022-04-20] MEDS: ASPIRIN 81MG EC TABLET PO SCH (09:00)
[2022-04-20] MEDS: FUROSEMIDE 40MG TABLET PO SCH (09:00)
[2022-04-20] MEDS: AMLODIPINE 10MG TABLET PO SCH (09:00)
[2022-04-20] MEDS: FAMOTIDINE 20MG TABLET PO SCH (09:00)
[2022-04-20] MEDS: LOSARTAN POTASSIUM 100 MG TABLET PO SCH (09:00)
[2022-04-20] MEDS: CLOPIDOGREL 75MG TABLET PO SCH (09:00)
[2022-04-20] MEDS ORDERED: LOSARTAN POTASSIUM 100 MG TABLET PO SCH (09:45)
[2022-04-20 12:00] VITALS: BP 120/57
[2022-04-20] MEDS ORDERED: METOPROLOL TARTRATE 50MG TABLET PO SCH (21:00)
== END 2022-04-20 16:10 | disposition home or self-care (01) | DRG 281 ==
LOC: ER 19:03 → MICUSO 23:45 → 7EST 04-18 10:50
PROVIDERS: ADMIT Internal Medicine; ATTEND Internal Medicine
DX: I16.1 Hypertensive emergency (principal); I21.4 Non-ST elevation (NSTEMI) myocardial infarction; E44.1 Mild protein-calorie malnutrition; I50.30 Unspecified diastolic (congestive) heart failure; I11.0 Hypertensive heart disease with heart failure; E78.00 Pure hypercholesterolemia, unspecified; S82.891A Other fracture of right lower leg, initial encounter for closed fracture; I25.10 Atherosclerotic heart disease of native coronary artery without angina pectoris; E05.90 Thyrotoxicosis, unspecified without thyrotoxic crisis or storm; E66.01 Morbid (severe) obesity due to excess calories; E11.51 Type 2 diabetes mellitus with diabetic peripheral angiopathy without gangrene; F41.9 Anxiety disorder, unspecified; F17.200 Nicotine dependence, unspecified, uncomplicated; W19.XXXA Unspecified fall, initial encounter; Z68.35 Body mass index [BMI] 35.0-35.9, adult; I25.2 Old myocardial infarction; Z88.0 Allergy status to penicillin; Z98.61 Coronary angioplasty status; Z79.4 Long term (current) use of insulin; Z79.899 Other long term (current) drug therapy; Y93.K1 Activity, walking an animal; Y92.89 Other specified places as the place of occurrence of the external cause; Y99.8 Other external cause status
CPT/HCPCS: 36415; 71045; 73610; 80053; 80061; 82550; 82553; 82607; 82746; 82962; 83036; 83540; 83550; 83735; 83880; 84100; 84439; 84443; 84484; 85025; 93005; 99291; C1893; J1650; J1885; J2785

== ENCOUNTER 2022-07-07 01:14 | Emergency (ER) | payer MEDICARE, MEDICAID ==
[~2022-07-07] VITALS: Ht 170.2 cm; Wt 118.0 kg
[~2022-07-07 01:14] MED LIST changes: +PERP2TAB5 MT
[2022-07-07 01:22] VITALS: BP 207/106
[2022-07-07] MEDS ORDERED: NAPR-681 MT (01:37)
[2022-07-07] MEDS ORDERED: IBUPROFEN 600MG TABLET PO ONE (01:45)
[2022-07-07] MEDS ORDERED: BACITRACIN 15GM TUBE TOP ONE (01:45)
[2022-07-07] MEDS ORDERED: ACETAMINOPHEN 325MG TABLET PO ONE (01:45)
== END 2022-07-07 02:20 | disposition home or self-care (01) ==
LOC: ER 01:14
DX: T25.222A Burn of second degree of left foot, initial encounter (principal); I11.0 Hypertensive heart disease with heart failure; I50.9 Heart failure, unspecified; E11.9 Type 2 diabetes mellitus without complications; E78.00 Pure hypercholesterolemia, unspecified; E05.90 Thyrotoxicosis, unspecified without thyrotoxic crisis or storm; X10.2XXA Contact with fats and cooking oils, initial encounter; Y93.G9 Activity, other involving cooking and grilling; Y92.9 Unspecified place or not applicable; Z88.0 Allergy status to penicillin; Z79.82 Long term (current) use of aspirin
CPT/HCPCS: 16020; 99282

== ENCOUNTER 2022-11-15 16:07 | Emergency (ER) | payer MEDICARE, MEDICAID ==
[~2022-11-15] VITALS: Ht 167.6 cm; Wt 103.0 kg
[~2022-11-15 16:07] MED LIST changes: -AMIT-188 PO; +AMIT50TA4 PO; -LOSA100T3 PO; +LOSA100T4 PO; +NAPR-681 MT; +PARO-150 MT; +PARO-162 MT; -PARO-66 MT; -PARO10TA87 MT
[2022-11-15 16:16] VITALS: BP 177/97
[2022-11-15 20:17] LABS: CLARITY URINE CLEAR (CLEAR); COLOR URINE YELLOW (YELLOW); KETONES URINE NEGATIVE (NEGATIVE); LEUKOCYTE ESTERASE URINE NEGATIVE (NEGATIVE); NITRITE URINE NEGATIVE (NEGATIVE); OCCULT BLOOD URINE NEGATIVE (NEGATIVE); PH URINE 5.5 (4.5-8.0); PROTEIN URINE NEGATIVE (NEGATIVE); SPECIFIC GRAVITY URINE 1.011 (1.005-1.030); UROBILINOGEN URINE 0.2 E.U./dL (0.2-1.0)
[2022-11-15] MEDS ORDERED: PHEN-910 MT ×3 (20:39→21:23)
== END 2022-11-15 20:45 | disposition home or self-care (01) ==
LOC: ER 16:07
DX: R30.0 Dysuria (principal); I11.0 Hypertensive heart disease with heart failure; I50.9 Heart failure, unspecified; E78.00 Pure hypercholesterolemia, unspecified; E11.9 Type 2 diabetes mellitus without complications; Z79.899 Other long term (current) drug therapy
CPT/HCPCS: 81003; 99283